=== PATIENT | male | born 1930 | race African-American/Black ===

== ENCOUNTER 2018-08-16 11:29 | Emergency (ER) | payer MEDICARE ==
[~2018-08-16] VITALS: Ht 175.3 cm; Wt 75.0 kg
[2018-08-16 13:21] VITALS: BP 125/76
== END 2018-08-16 14:17 | disposition home or self-care (01) ==
LOC: ER 14:13
DX: Z48.00 Encounter for change or removal of nonsurgical wound dressing (principal)
CPT/HCPCS: 99282